=== PATIENT | female | born 1955 | race Caucasian/White ===

== ENCOUNTER 2024-08-02 09:54 | Outpatient (OUT) | payer MEDICARE, SELFPAY ==
--- NOTE | 2024-08-02 10:09 | ECG_ITS ---
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
== END 2024-08-02 09:55 | disposition home or self-care (01) ==
LOC: PST 09:59
PROVIDERS: PCP Family Medicine; Visit Provider Obstetrics & Gynecology
DX: Z01.810 Encounter for preprocedural cardiovascular examination (principal); N95.0 Postmenopausal bleeding; N94.89 Other specified conditions associated with female genital organs and menstrual cycle
CPT/HCPCS: 93005

== ENCOUNTER 2024-08-11 06:05 | Day surgery (SDC) | payer MEDICARE, SELFPAY ==
[2024-08-02 10:42] VITALS: BP 163/111; BP 173/95; PULSE 77; TEMP 36.5; O2SAT 98; BMI 31.4
[2024-08-11] VITALS (10 sets, daily range): BP systolic 127–145; BP diastolic 75–97; PULSE 63–77; TEMP 36.1–36.2; O2SAT 91–96; BMI 30.2
--- OUTSIDE RECORDS SUMMARY | 2024-08-11 06:08 | XMS_ITS | CCD ---
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 Name Role Phone Lizeth Pickett MD Unavailable Lizeth Pickett MD Primary Care Provider [phone] LIZETH PICKETT Referring Unavailable JUDITH EDWARDS Attending Unavailable LIZETH PICKETT Attending Unavailable MEDINA, LIZETH Tricia Referring Unavailable MEDINA, LIZETH Tricia Referring Unavailable BRIANNE AJ Attending Unavailable JUSTYN STEVENSON Attending Unavailab LIZETH Lawton Tricia Referring Unavailable STEVENSONJUSTYN HAMEED Attending Unavailab JUSTYN Dave Referring Unavailab le LIZETH PICKETT Tricia Attending Unavailable LIZETH PICKETT Tricia Referring Unavailable ALEXSANDRA LEDESMA Attending Unavailable BRIANNE AJ Attending Unavailable BRIANNE AJ Attending Unavailable ALEXSANDRA LEDESMA Attending Unavailable LIZETH PICKETT Tricia Attending Unavailable LIZETH PICKETT Tricia Attending Unavailable Allergies Allergy Classification Reported Allergen(s) Allergy Type Date of Onset Reaction(s) Facility (6 sources) Morphine Drug Allergy 2 GI intolerance [facility] Medications Current Medications Medication Drug Class(es) Dates Sig (Normalized) Sig (Original) carvedilol 25 mg oral tablet (3 sources) alpha-Adrenergi c Luanne, beta-Adrenergic Luanne Start: 08-07-2024 End: 08-07-2025 take 1 tablet by mouth in the morning carvedilol (Coreg) 25 MG tablet Indications: Primary hypertension (CMS/HCC) Take 1 tablet (25 mg) by mouth in the morning and 1 tablet (25 mg) in the evening. Take with meals. 60 tablet 1 08/07/2024 08/07/2025 Active cholecalciferol 0.05 mg oral capsule (6 sources) Vitamin D cholecalciferol (Vitamin D-3) 50 MCG (1999) capsule Take by mouth. Active esomeprazole 20 mg delayed release oral capsule (6 sources) Proton Pump Inhibitor take 1 capsule by mouth before mealtime esomeprazole (NexIUM) [address] capsule Take 20 mg by mouth in the morning. Take before meals. Do not open capsule.. Active Fluticasone-Umeclidin -Vilant (Trelegy Ellipta) 200-62.5-25 MCG/ACT aerosol powder (6 sources) Start: 09-15-2023 take 1 puff(s) by inhalation in the morning Fluticasone-Umeclidi n-Vilant (Trelegy Ellipta) 200-62.5-25 MCG/ACT aerosol powder Indications: Other emphysema (CMS/HCC) Inhale 1 puff in the morning. 1 each 09/15/2023 Active Multiple Vitamins-Minerals (CENTRUM SILVER PO) (6 sources) Multiple Vitamins-Minerals (CENTRUM SILVER PO) Take by mouth. Active Problems Active Problems Problem Classification Problem Date Documented Date Episodic/Chronic Chronic obstructive pulmonary disease and bronchiectasis (2 sources) Pulmonary emphysema; Translations: [Other emphysema] 08-07-2024 Chronic Essential hypertension (2 sources) Essential hypertension; Translations: [Essential (primary) hypertension] 08-07-2024 Chronic Menopausal disorders (15 sources) Postmenopausal bleeding; Translations: [Postmenopausal bleeding] Onset: 07-03-2024 07-03-2024 Chronic Other female genital disorders (6 sources) Mass of uterus; Translations: [Other specified noninflammatory disorders of uterus] Onset: 07-03-2024 07-03-2024 Episodic Other female genital disorders (1 source) Lesion of endometrium; Translations: [Other specified conditions associated with female genital organs and menstrual cycle] 07-18-2024 Episodic Other nervous system disorders (6 sources) Other specified mononeuropathies of right lower limb; Translations: [Other mononeuritis of lower limb] Onset: 09-15-2023 09-15-2023 Chronic Past or Other Problems Problem Classification Problem Date Documented Da te Episodic/Chronic Other lower respiratory disease (8 sources) Solitary nodule of lung; Translations: [Solitary pulmonary nodule] Onset: 09-29-2023 09-29-2023 Episodic Results Test Name Value Interpretation Reference Range Facil ity US PELVIC COMPLETE W/ TVon 0 9-10-2024 US PELVIC COMPLETE W/ TV EXAM: Pelvic Ultrasound, Transabdominal and Transvaginal. REASON FOR EXAM: Post menopausal bleeding. TECHNIQUE: Transabdominal and endovaginal scanning was performed, including color Doppler. FINDINGS: Bladder: Smooth, normal margins. No obvious masses or diverticula. Myometrium: Calcified, shadowing fundal fibroid to the right of midline measuring 2.0 x 1.8 x 1.1 cm. Endometrium: Obscured by an isoechoic mass with circumscribed margins measuring 4.0 x 2.6 x 2.6 cm. Cervix: Nabothian cysts are present. Cul-de-sac: No significant free fluid present. Right Ovary: Obscured by overlying bowel gas. Left Ovary: Obscured by overlying bowel gas. Measurements: Uterus: 8.14 x 5.14 x 4.32 cm EM: 2.48 cm Right Ovary: obscured Left Ovary: obscured IMPRESSION, Transabdominal Pelvic Ultrasound: Calcified fundal fibroid of the myometrium. Endometrial mass versus subendometrial fibroid of significant size centrally in the uterus. IMPRESSION, Endovaginal Pelvic Ultrasound: Calcified fundal fibroid of the myometrium. Endometrial mass versus subendometrial fibroid of significant size centrally in the uterus. Ovaries obscured. RECOMMEND: Gynecology consult. *This report is generated using voice recognition reporting (Tasqe). On occasion [employer] erroneously drops words from the report or replaces the spoken word with similar sounding words. Please call with any questions/concerns regarding this report.* Dictated and transcribed 06/27/2024/tm This report has been electronically signed and approved by the interpreting radiologist. Electronically Signed Armani Zhang M.D. 2024-06-27 13:05:13 Normal Not Available US RENAL COMPLETEon 06-14-20 24 US RENAL COMPLETE TITLE OF EXAM: US - US RENAL DOPPLER REASON FOR EXAM: Hematuria TECHNIQUE: Grayscale and color ultrasound evaluation of the abdomen. COMPARISON: None. FINDINGS: Measurements: Right kidney: 11.0 x 4.7 x 4.3 cm Left kidney: 10.9 x 4.3 x 5.7 cm Urinary bladder: 12.9 x 9.4 x 9.1 cm prevoid, 583 mL volume and 4.9 x 4.0 x 4.4 cm post void, volume 538 mL Right Kidney: The parenchymal echogenicity and thickness appear within normal range. No focal lesion is demonstrated. No hydronephrosis. Left Kidney: The parenchymal echogenicity and thickness appear within normal range. No focal lesion is demonstrated. No hydronephrosis. Urinary bladder: No focal or diffuse wall thickening. Bilateral ureteral jets visualized. No appreciable ascites. IMPRESSION: 1. Abnormal urinary bladder post void residual, 538 mL. 2. Otherwise sonographically normal urologic structures. DICTATED ON: 06/15/2024 8:36 AM This report has been electronically signed in approved by the interpreting radiologist. Electronically Signed Kyle Wellington M.D. 2024-06-15 08:37:[address] CHEST WO IV CONTRASTon CT CHEST WO IV CONTRAST EXAM: CT Chest without Contrast: REASON FOR EXAM: Six-month lung nodule followup. COMPARISON: CT chest December 14, 2023. CT chest September 23, 2023. TECHNIQUE: Sagittal, axial and coronal thin cuts of the chest obtained. IV contrast not administered. FINDINGS: The lower neck is without acute abnormality. Scattered subcentimeter middle mediastinal noncalcified lymph nodes. Heart not enlarged. No pericardial thickening. No definite coronary artery calcifications. Images of the upper abdomen are without acute abnormality. Atherosclerosis is present. Osseous structures are without acute abnormality. Regional soft tissues notable for partially calcified right axillary lymph node, not significantly changed. Trabeculated lucency in the lower thoracic vertebral column on the right consistent with an intraosseous hemangioma, unchanged. The airways are patent and symmetric. Fibrolinear changes in the lung bases are stable. A circular 7.1 mm noncalcified pulmonary nodule in the superior segment of the right lower lobe is unchanged. No new abnormalities. There is a 2 to 3 mm calcified granuloma adjacent to the major fissure in the inferior aspect of the right upper lobe. IMPRESSION: 1. Stable right lower lobe noncalcified 7 mm pulmonary nodule. Followup CT chest in six months is recommended to document stability for a year. 2. Previous granulomatous exposure. All CT scans at this institution are performed using dose optimization techniques as appropriate for the performed exam including the following: Automated exposure control Adjustment of the mA and/or kV according to patient size Use of iterative reconstruction technique *This report is generated using voice recognition reporting (Tasqe). On occasion [employer] erroneously drops words from the report or replaces the spoken word with similar sounding words. Please call with any questions/concerns regarding this report.* Dictated and transcribed 06/06/2024/steffen This report has been electronically signed and approved by the interpreting radiologist. Electronically Signed Olvin Lopez II, M.D. 2024-06-06 09:59:[address] CHEST WO IV CONTRASTon CT CHEST WO IV CONTRAST EXAMINATION: CT CHEST WO IV CONTRAST HISTORY: Follow-up lung nodule. TECHNIQUE: Spiral CT acquisition of the chest from the thoracic inlet to the upper abdomen. Dedicated sagittal and coronal reconstructions. Contrast: None. All CT scans at this facility use dose modulation, iterative reconstruction, and/or weight based dosing when appropriate to reduce radiation dose to as low as reasonably achievable. COMPARISON: CT 09/23/2023. RESULT: Lung parenchyma and pleura: Central airways grossly patent. No focal consolidation. No pleural effusion. No pneumothorax. Areas of scarring/atelectasis including linear scarring at the left lung base. 7 x 7 mm solid nodule within the superior segment of the right lower lobe, unchanged from 09/23/2023. Additional 2 mm nodule within the right upper lobe posteriorly, unchanged. Thoracic inlet, heart, and mediastinum: Subcentimeter nodule or cyst right thyroid, not requiring follow-up. No axillary, mediastinal, or hilar lymphadenopathy. Mild thoracic aorta atherosclerotic calcifications without aneurysm. Normal pulmonary size artery. Normal heart size. Scattered coronary artery calcifications. No pericardial effusion or thickening. Esophagus nondilated. Bones: No acute osseous findings. No destructive osseous lesions. Degenerative changes. Underlying decreased bone mineral density. Hemangioma at T12. Small Schmorl's nodes. Soft tissues: Unremarkable. Upper abdomen: No acute abnormality in the imaged upper abdomen. IMPRESSION: 7 mm solid nodule in the superior segment of the right lower lobe, unchanged. Consider follow-up CT in 6 months to ensure stability. ELECTRONICALLY SIGNED BY: Marcus Dominguez MD Normal Not Available BI MAMMOGRAM SCREENING TOMOS YNTHESIS BILATERALon 09-23-2023 BI MAMMOGRAM SCREENING TOMOSYNTHESIS BILATERAL This is a summary report. The complete report is available in the patient's medical record. If you cannot access the medical record, please contact the sending organization for a detailed fax or copy. EXAMINATION: BI MAMMOGRAM SCREENING TOMOSYNTHESIS BILATERAL CLINICAL HISTORY: mammogram COMPARISON: There are no previous mammograms available for comparison. RESULT: Digital mammography and 3D tomosynthesis of bilateral breasts was performed. The breasts are almost entirely fatty. There is no suspicious mass, asymmetry, architectural distortion, or calcification. IMPRESSION: BIRADS 1 - Negative. Follow-up: Routine Screening Mamm . Board Certified Radiologists. Accredited by the ACR and FDA. MAMMOGRAPHY IS VERY IMPORTANT TO YOUR HEALTH. THE [place] [employer] GUIDELINES RECOMMEND THAT WOMEN 40 YEARS OF AGE AND OLDER SHOULD HAVE A MAMMOGRAM EVERY YEAR. A REMINDER LETTER WILL BE SENT AT THE APPROPRIATE TIME. THIS FACILITY UTILIZES A REMINDER SYSTEM TO ENSURE ALL PATIENTS RECEIVE REMINDER NOTIFICATIONS AT THE APPROPRIATE TIME BASED ON THE RECOMMENDATIONS OF THIS EXAM. THIS INCLUDES REMINDERS FOR ROUTINE SCREENING MAMMOGRAMS, DIAGNOSTIC MAMMOGRAMS IN WHICH THE PATIENT IS ASKED TO RETURN FOR ADDITIONAL VIEWS, OR OTHER BREAST IMAGING INTERVENTIONS WHEN APPROPRIATE. THE PATIENT WILL BE PLACED IN THE APPROPRIATE REMINDER SYSTEM INCLUDING A REMINDER AT THE APPROPRIATE TIME FOR ANY PENDING ADDITIONAL VIEWS. TRANSCRIBED BY: ELECTRONICALLY SIGNED BY: Mahendra Shah MD Normal Not Available CT LUNG SCREENING LOW DOSEon 09-23-2023 CT LUNG SCREENING LOW DOSE This is a summary report. The complete report is available in the patient's medical record. If you cannot access the medical record, please contact the sending organization for a detailed fax or copy. LOW DOSE LUNG CANCER SCREENING PROTOCOL CT CHEST WITHOUT IV CONTRAST: HISTORY: NICOTINE DEPENDENCE COMPARISON: TECHNIQUE: Low dose lung cancer screening protocol spiral CT of the chest without IV contrast. Axial, coronal and sagittal reformatted images were reviewed. FINDINGS: The right lung parenchyma shows no focal parenchymal abnormalities. There are small areas of atelectasis/scarring in the right lower lobe. Small calcified granuloma superior lateral aspect of the right upper lobe. There is a noncalcified nodule in the superior aspect of the right lower lobe series 4 image 109 series 2 image 109. It measures approximately 9 mm. No pleural effusions. No pneumothorax. The left lung parenchyma shows small scarring left lower lobe. No other focal parenchymal abnormalities no pleural effusions. No pneumothoraces. The heart and great vessels are intact. No significant periaortic pretracheal, parahilar or subcarinal adenopathy. Within the [id number] of the abdomen visualized abdominal contents are unremarkable. There is multilevel degenerative change visualized thoracic spine IMPRESSION: Impression: 9 MM NONCALCIFIED NODULE SUPERIOR ASPECT RIGHT LOWER LOBE. LUNG-RADS 4A: SUSPICIOUS--3 MONTH LDCT; PET/CT MAY BE USED WHEN THERE IS A GREATER THAN/EQUAL TO 8 MM SOLID COMPONENT. FINDINGS FOR WHICH ADDITIONAL DIAGNOSTIC TESTING AND/OR TISSUE SAMPLING IS RECOMMENDED. All CT scans at this facility use dose modulation, iterative reconstruction, and/or weight based dosing when appropriate to reduce radiation dose to as low as reasonably achievable. ELECTRONICALLY SIGNED BY: Jordin Moe MD Normal Not Available XR KNEE 3 VIEWS RIGHTon 11-2 XR KNEE 3 VIEWS RIGHT EXAM: XR KNEE 3 VIEWS RIGHT HISTORY: knee pain TECHNIQUE: 3 views of the knee obtained. COMPARISON: None available FINDINGS: No acute fracture or dislocation. Joint spaces of the knee are maintained. No knee joint effusion. Soft tissues are within normal limits. IMPRESSION: No acute osseous abnormality. ELECTRONICALLY SIGNED BY: Hamilton Lopez DO Normal Not Available Vital Signs Date Time Vital Sign Value Performing Clinician Faci lity 08-07-2024 09:39-0400 Body height 162.6 cm Lizeth Pickett MD Work Phone: [facility] 08-07-2024 09:39-0400 Body mass index (BMI) [Ratio] 30.62 kg/m2 Lizeth Pickett MD Work Phone: [facility] 08-07-2024 09:39-0400 Body weight 80.92 kg Lizeth Pickett MD Work Phone: [facility] 08-07-2024 09:39-0400 Diastolic blood pressure 94 mm[Hg] Lizeth Pickett MD Work Phone: [facility] 08-07-2024 09:39-0400 Heart rate 80 /min Lizeth Pickett MD Work Phone: [facility] 08-07-2024 09:39-0400 Respiratory rate 18 /min Lizeth Pickett MD Work Phone: [facility] 08-07-2024 09:39-0400 SaO2% (BldA) [Mass fraction] 98 % Lizeth Pickett MD Work Phone: [facility] 08-07-2024 09:39-0400 Systolic blood pressure 142 mm[Hg] Lizeth Pickett MD Work Phone: [facility] 07-18-2024 10:43-0400 Body height 162.6 cm i2O Water DO Work Phone: [facility] [employer] 07-18-2024 10:43-0400 Body mass index (BMI) [Ratio] 30.21 kg/m2 CEED [employer] DO Work Phone: [facility] 07-18-2024 10:43-0400 Body weight 79.83 kg i2O Water DO Work Phone: [facility] 07-18-2024 10:43-0400 Diastolic blood pressure 84 mm[Hg] [employer] Work Phone: [facility] 07-18-2024 10:43-0400 Systolic blood pressure 132 mm[Hg] CEED Techzio DO Work Phone: [facility] Healthcare Encounters Encounter Date Encounter Type Care Provider Facility Start: 08-09-2024 End: 08-09-2024 Bamboo flowsheet Lizeth Pickett MD Work Phone: [facility] Start: 08-09-2024 End: 08-09-2024 Bamboo flowsheet Lizeth Pickett MD Work Phone: [facility] Start: 08-09-2024 End: 08-09-2024 ambulatory LIZETH PICKETT Not Available Start: 08-07-2024 End: 08-07-2024 Bamboo flowsheet Lizeth Pickett MD Work Phone: [facility] Start: 08-07-2024 End: 08-07-2024 Bamboo flowsheet Lizeth Pickett MD Work Phone: [facility] Start: 08-07-2024 End: 08-07-2024 Office outpatient visit 15 minutes Lizeth Pickett MD Work Phone: [facility] Comment on above: Postmenopausal bleed ing (Primary Dx); Solitary lung nodule; Primary hypertension (CMS/HCC); Other emphysema (CMS/HCC) Start: 08-07-2024 End: 08-07-2024 ambulatory LIZETH F MEDINA Not Available Start: 07-18-2024 End: 07-18-2024 Bamboo flowsheet Alexsandra Baltazar DO Work Phone: [facility] Start: 07-18-2024 End: 07-18-2024 Bamboo flowsheet Alexsandra Baltazar DO Work Phone: [facility] Start: 07-18-2024 End: 07-18-2024 Office outpatient visit 15 minutes Alexsandra Baltazar DO Work Phone: [facility] Comment on above: Pre-op examination; Endometrial mass; Postmenopausal bleeding Start: 07-18-2024 End: 07-18-2024 Preprocedural examination done Alexsandra Baltazar DO Work Phone: [facility] Start: 07-18-2024 End: 07-18-2024 ambulatory ALEXSANDRA BALTAZAR Not Available Start: 07-05-2024 End: 07-05-2024 ambulatory BRIANNE AJ Not Available Start: 07-03-2024 End: 07-03-2024 ambulatory ALEXSANDRA BALTAZAR Not Available Start: 06-27-2024 End: 06-27-2024 ambulatory LIZETH F MEDINA Not Available Start: 06-22-2024 End: 06-22-2024 ambulatory LIZETH F MEDINA Not Available Start: 06-14-2024 End: 06-14-2024 ambulatory JUSTYN A STEVENSON Not Available Start: 06-12-2024 End: 06-12-2024 ambulatory JUSTYN A STEVENSON Not Available Start: 06-05-2024 End: 06-05-2024 ambulatory LIZETH F MEDINA Not Available Start: 05-27-2024 End: 05-27-2024 ambulatory JUSTYN A STEVENSON Not Available Start: 12-22-2023 End: 12-22-2023 ambulatory BRIANNE AJ Not Available Start: 12-20-2023 End: 12-20-2023 ambulatory JUDITH EDWARDS Not Available Start: 12-14-2023 End: 12-14-2023 ambulatory LIZETH F MEDINA Not Available Start: 09-29-2023 End: 09-29-2023 ambulatory BRIANNE AJ Not Available Start: 09-23-2023 End: 09-23-2023 ambulatory LIZETH PICKETT Not Available Start: 09-15-2023 End: 09-15-2023 ambulatory LIZETH PICKETT Not Available Procedures Date Procedure Procedure Detail Performing Clinician Start: 09-23-2023 Mammography Alexsandra steele DO Work Phone: Plan of Treatment Date Care Activity Detail Author Start: 04-16-2025 Influenza vaccination Influenza Vacc ine (#1) [facility] Comment on above: Postponed from 06/18 (Patient Refused) Start: 12-20-2024 End: 12-20-2024 Patient encounter procedure 12/20/2024 9:45 AM EST Office Visit [facility] [address] [place] [address] Brianne Aj, [address] [place] [address] [facility] Start: 09-23-2024 Screening for malign ant neoplasm of breast Mammogram [facility] Start: 09-15-2024 Medicare Annual Well ness (AWV) Medicare Annual Wellness (AWV) [facility] Start: 08-11-2024 End: 08-11-2024 Patient encounter procedure 08/11/2024 9:30 AM EDT Procedure Visit [facility] Alexsandra Ledesma, DO [address] [facility] [place] [address] [facility] Start: 08-09-2024 End: 08-09-2024 Patient encounter procedure [facility] Comment on above: Arrived Start: 08-07-2024 End: 08-07-2024 Patient encounter procedure 08/07/2024 9:40 AM EDT Office Visit [facility] [address] [place] [address] Lizeth Pickett MD [address] [place], [place] [id number] Arrived [facility] Comment on above: Arrived Start: 07-18-2024 End: 07-18-2024 Patient encounter procedure 07/18/2024 10:10 AM EDT Consult [facility] [address] [place] [address] Alexsandra Ledesma, DO [address] [place] [address] Arrived [facility] Comment on above: Arrived Start: 06-18-2024 Influenza vaccination Influenza Vacc ine (#1) [facility] Start: 1955 Screening for malign ant neoplasm of colon [facility] Immunizations Immunization Date Immunization Notes Care Provider Fa cilistephane 09-15-2023 Pneumococcal Conjuga te PCV 20 Alexsandra Ledesma DO Work Phone: [facility] Payers Date Payer Category Payer Medicare [employer] MEDIC[employer] ADVANTAGE [facility]LY [facility] MEDICARE ADVANTAGE [id number] 2023-Present [address] [id number] 2023 Medicare (Managed Care) [facility] ADVANTAGE Member Subscriber Plan / Payer (Effective 2023-Present) Name: Miller Maira Relation to Subscriber: Self Name: Maira Miller Payer ID: Not on file Group ID: Not on file Type: Not on file Address: [address] [id number] 2023 Medicare [id number] 1955 Unknown [id number] [id number] .2.1259 1953 Unknown [id number] 2.16.840.1.330425.3.579 .2.1259 1953 Unknown [id number] 2.16.840.1.857126.3.579 .2.1259 1953 Unknown [id number] 2.16.840.1.465748.3.579 .2.1259 1953 Unknown [id number] 2.16.840.1.881297.3.579 .2.1259 1953 Unknown [id number] 2.16.840.1.778091.3.579 .2.1259 1953 Unknown [id number] 2.16.840.1.184394.3.579 .2.1259 1953 Unknown [id number] 2.16.840.1.043798.3.579 .2.1258 1953 Unknown [id number] 2.16.840.1.699774.3.579 .2.125 1953 Unknown [id number] 2.16.840.1.176705.3.579 .2.125 1953 Unknown [id number] 2.16.840.1.991803.3.579 .2.125 1953 Unknown [id number] 2.16.840.1.736792.3.579 .2.1259 1953 Unknown [id number] 2.16.840.1.300933.3.579 .2.1259 1953 Unknown [id number] 2.16.840.1.845837.3.579 .2.125 1953 Unknown [id number] 2.16.840.1.599807.3.579 .2.1259 1953 Unknown [id number] 2.16.840.1.283258.3.579 .2.1259 1953 Unknown [id number] 2.16.840.1.618013.3.579 .2.1259 1953 Unknown [id number] 2.16.840.1.738634.3.579 .2.1259 1953 Unknown [id number] 2.16.840.1.842649.3.579 .2.1259 Social History Date Type Detail Facility Start: 05-27-2024 Tobacco smoking status NHIS Ex-smoke r [facility] Start: 03-01-1978 End: 03-01-2018 History of tobacco use Current smoker [facility] Start: 03-01-1978 End: 03-01-2018 History of tobacco use Cigarette Smoker [facility] Start: 09-14-2023 End: 05-27-2024 Cigarettes smoked current (pack per day) - Reported 1 [facility] Start: 05-27-2024 Tobacco use and exposure Smoke less tobacco non-user [facility] Start: 07-03-2024 End: 08-07-2024 Alcoholic beverage intake Current drinker of alcohol (finding) [facility] Start: 09-14-2023 End: 09-15-2023 Humiliation, Afraid, Rape, and Kick questionnaire [HARK] [facility] Within the last year , have you been afraid of your partner or ex-partner? No [facility] Are you now , , , , never or living with a partner? [facility] How often to you hav e a drink containing alcohol? 2-3 time sa week [facility] How many standard dr inks containing alcohol do you have on a typical day? 1 or 2 [facility] How often do you hav e 6 or more drinks on 1 occasion? Less than monthly [facility] How hard is it for y ou to pay for the very basics like food, housing, medical care, and heating Not very hard [facility] Do you feel stress - tense, restless, nervous, or anxious, or unable to sleep at night because your mind is troubled all the time - these days [OSQ] Only a little [facility] (I/We) worried wheth er (my/our) food would run out before (I/we) got money to buy more. Never true [facility] In the past 12 month s, has lack of transportation kept you from medical appointments or from getting medications? No [facility] Start: 06-22-2024 Alcohol Comment Caffine: 0 [facility] Start: 1955 Sex assigned at Female [facility] Start: 09-01-2023 Gender identity Identifies as female gender (finding) [facility] Start: 09-01-2023 Sexual orientation Heterosexual (alex mariano) [facility] History of Present illness Narrative 08-07-2024 Lizeth Pickett MD - 08/07/2024 9:40 AM EDT Note Date & Type Note Facility 08-07-2024 History of Presen t illness Narrative Maira Miller is a 68 y.o. female presents with chief complaint of Hypertension (Patient presents today for high blood pressures. Patient is scheduled to have D&C hysteroscopy surgery on 08/11/[address] Ledesma. ) HPI: HPI History of Present Illness SUBJECTIVE: MEDICATIONS: Current Outpatient Medications Medication Instructions cholecalciferol (Vitamin D-3) 50 MCG (1999 UT) capsule Take by mouth. esomeprazole (NEXIUM) 20 mg, Daily before breakfast Fceslchgdaz-Yjkwzvwsy-Fkxpps (Trelegy Ellipta) 200-62.5-25 MCG/ACT aerosol powder 1 puff, Inhalation, Daily Multiple Vitamins-Minerals (CENTRUM SILVER PO) Take by mouth. ALLERGIES: Allergies Allergen Reactions Morphine GI intolerance Vomiting SURGICAL HISTORY: Past Surgical History: Procedure Laterality Date ROTATOR CUFF REPAIR 2004 SHOULDER SURGERY TUBAL LIGATION FAMILY HISTORY: Family History Problem Relation Name Age of Onset Breast cancer Mother Fatmata Greenberg Rheum arthritis Mother Fatmata Greenberg Tuberculosis Father SOCIAL HISTORY: Social History Tobacco Use Smoking status: Former Current packs/day: 0.00 Average packs/day: 1 pack/day for 40.0 years (40.0 ttl pk-yrs) Types: Cigarettes Start date: 03/01/1978 Quit date: 03/01/2018 Years since quittin.4 Smokeless tobacco: Never Substance Use Topics Alcohol use: Yes Alcohol/week: 2.0 - 7.0 standard drinks of alcohol Types: 2 - 7 Standard drinks or equivalent per week Comment: Caffine: 0 Drug use: Never Depression: Not at risk (09/15/2023) PHQ-2 PHQ-2 Score: 0 REVIEW OF SYMPTOMS: Review of Systems Respiratory: Negative. Cardiovascular: Negative. OBJECTIVE: Visit Vitals BP (!) 142/94 (BP Location: Left arm, Patient Position: Sitting, BP Cuff Size: Large adult) Pulse 80 Resp 18 Ht 5' 4 Wt 178 lb 6.4 oz SpO2 98% BMI 30.62 kg/m Smoking Status Former BSA 1.91 m Physical Exam Constitutional: Appearance: Normal appearance. She is normal weight. HENT: Head: Normocephalic and atraumatic. Nose: Nose normal. Mouth/Throat: Mouth: Mucous membranes are moist. Eyes: Pupils: Pupils are equal, round, and reactive to light. Cardiovascular: Rate and Rhythm: Normal rate and regular rhythm. Heart sounds: No murmur heard. Pulmonary: Effort: Pulmonary effort is normal. Breath sounds: Normal breath sounds. No wheezing or rhonchi. Musculoskeletal: General: No swelling. Cervical back: Normal range of motion and neck supple. Right lower leg: No edema. Left lower leg: No edema. Skin: General: Skin is warm and dry. Findings: No rash. Neurological: Mental Status: She is alert and oriented to person, place, and time. Sensory: No sensory deficit. Gait: Gait normal. Psychiatric: Mood and Affect: Mood normal. Thought Content: Thought content normal. Judgment: Judgment normal. ASSESSMENT AND PLAN: Assessment/Plan Problem List Items Addressed This Visit Solitary lung nodule Postmenopausal bleeding - Primary Other Visit Diagnoses Primary hypertension (CMS/HCC) Relevant Medications carvedilol (Coreg) 25 MG tablet Other emphysema (CMS/HCC) Elevated bp start coreg. Recheck bp in 2 days t clear for surgery documented in this encounter [facility] History of Present illness Narrative 07-18-2024 Nakia Weller - 07/18/2024 10:10 AM EDT Note Date & Type Note Facility 07-18-2024 History of Presen t illness Narrative Reason for Appointment: Patient ID: Maira Miller is a 68 y.o. female who presents for Pre-op Visit Patient presents today for Pre Op appointment. Patient is scheduled to undergo D&C Hysteroscopy, possible Myosure on 08/11/[address] Ledesma at [facility]. MEDICATIONS Current Outpatient Medications Medication Instructions cholecalciferol (Vitamin D-3) 50 MCG (1999 UT) capsule Oral esomeprazole (NEXIUM) 20 mg, Oral, Daily before breakfast, Do not open capsule. 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 Solitary lung nodule 09/29/2023 Postmenopausal bleeding 07/03/2024 Uterine mass 07/03/2024 Hot flashes due to menopause 07/03/2024 Resolved Ambulatory Problems Diagnosis Date Noted No Resolved Ambulatory Problems Past Medical History: Diagnosis Date Arthritis COPD (chronic obstructive pulmonary disease) ([facility]) H/O shoulder surgery 2000 HISTORY PAST MEDICAL HISTORY SOCIAL HISTORY Past Medical History: Diagnosis Date Arthritis COPD (chronic obstructive pulmonary disease) ([facility]) H/O shoulder surgery 2000 Social History Tobacco Use Smoking status: Former Current packs/day: 0.00 Average packs/day: 1 pack/day for 40.0 years (40.0 ttl pk-yrs) Types: Cigarettes Start date: 03/01/1978 Quit date: 03/01/2018 Years since quittin.3 Smokeless tobacco: Never Substance Use Topics Alcohol use: Yes Alcohol/week: 2.0 - 7.0 standard drinks of alcohol Types: 2 - 7 Standard drinks or equivalent per week Comment: Caffine: 0 Drug use: Never FAMILY HISTORY Family History Problem Relation Name Age of Onset Breast cancer Mother Tuberculosis Father SURGICAL HISTORY Past Surgical History: Procedure Laterality Date ROTATOR CUFF REPAIR 2005 SHOULDER SURGERY TUBAL LIGATION REVIEW OF SYSTEMS Review of Systems: Review of Systems Constitutional: Negative. HENT: Negative. Eyes: Negative. Respiratory: Negative. Cardiovascular: Negative. Gastrointestinal: Negative. Genitourinary: Positive for vaginal bleeding. Musculoskeletal: Negative. Skin: Negative. Neurological: Negative. All other systems reviewed and are negative. Hematological: Negative. Endocrine: Negative. Allergic/Immunologic: Negative. OBJECTIVE Objective: Physical Exam Constitutional: Appearance: Normal appearance. She is well-developed. Cardiovascular: Rate and Rhythm: Normal rate and regular rhythm. Pulmonary: Effort: Pulmonary effort is normal. Breath sounds: Normal breath sounds. Abdominal: General: Bowel sounds are normal. There is no distension. Palpations: Abdomen is soft. Tenderness: There is no abdominal tenderness. There is no guarding or rebound. Musculoskeletal: General: No swelling. Normal range of motion. Right lower leg: No edema. Left lower leg: No edema. Neurological: Mental Status: She is alert and oriented to person, place, and time. Skin: General: Skin is warm and dry. Psychiatric: Mood and Affect: Mood normal. Behavior: Behavior normal. Vitals and nursing note reviewed. Exam conducted with a shrimp packer present. Vitals: Estimated body mass index is 30.48 kg/m as calculated from the following: Height as of 07/05/24: 5' 4 . Weight as of 07/05/24: 177 lb 9.6 oz. BP: No LMP recorded. ASSESSMENT & PLAN ICD-10-CM 1. Pre-op examination Z01.818 2. Endometrial mass N94.89 3. Postmenopausal bleeding N95.0 Pre Op: Patient is doing well but has complaints of postmenopausal bleeding. I have discussed conservative management vs. surgical management with the patient in detail and patient desires surgical management at this time. Patient will undergo D&C Hysteroscopy, possible Myosure on 08/11/2024. Surgical consents were signed, mmc was reviewed, and patient is to proceed to [facility] OR. Follow Up: Patient is to follow up between 1-2 weeks post operative to assess proper healing and recovery from procedure. Documented by Aleah Reveles LPN on behalf of: Alexsandra Ledesma DO documented in this encounter [facility] Evaluation note Note Date & Type Note Facility Evaluation note Diagnosis Pre-op examination Endometrial mass Postmenopausal bleeding documented in this encounter [facility] Evaluation note Note Date & Type Note Facility Evaluation note Diagnosis Postmenopausal bleeding- Primary Solitary lung nodule Other diseases of lung, not elsewhere classified Primary hypertension (CMS/HCC) Unspecified essential hypertension Other emphysema (CMS/HCC) Other emphysema documented in this encounter [facility] Summary Purpose Family History No Family History Records Found Advance Directives No Advanced Directives Records Found Additional Source Comments Care Teams (unrecognized sec tion and content) Drilling Contractor Relationship Specialty Start Date End Date Lizeth Pickett MD [address] [place] [address] PCP - Suzan FLOREZ 08/18/22 Lizeth Pickett MD [address] [place] [address] PCP - General Family Medicine 02/23/23 Drilling Contractor Relationship Specialty Start Date End Date Lizeth Pickett MD [address] [place] [address] PCP - Suzan FLOREZ 08/18/22 Lizeth Pickett MD [address] [place] [address] PCP - General Family Medicine 02/23/23 Drilling Contractor Relationship Specialty Start Date End Date Lizeth Pickett MD [address] [place] [address] PCP - Suzan FLOREZ 08/18/22 Lizeth Pickett MD [address] [place] [address] PCP - General Family Medicine 02/23/23 Drilling Contractor Relationship Specialty Start Date End Date Lizeth Pickett MD [address] [place] [address] PCP - Suzan FLOREZ 08/18/22 Lizeth Pickett MD [address] [place] [address] PCP - General Family Medicine 02/23/23 Drilling Contractor Relationship Specialty Start Date End Date Lizeth Pickett MD [address] [place] [address] PCP - Suzan FLOREZ 08/18/22 Lizeth Pickett MD [address] [place] [address] PCP - General Family Medicine 02/23/23 Reason for Visit (unrecogniz ed section and content) Reason Comments Pre-op Visit Reason Comments Hypertension Patient presents tod ay for high blood pressures. Patient is scheduled to have D&C hysteroscopy surgery on 08/11/[address] Ledesma. INFORMATION SOURCE (unrecogn ized section and content) DATE CREATED AUTHOR 08/10/2024 [facility] FOR RECORDS PERTAINING TO PATIENTS WHO ARE OR HAVE BEEN ENROLLED IN A CHEMICAL DEPENDENCY/SUBSTANCEABUSE PROGRAM, SOME INFORMATION MAY BE OMITTED. This clinical summary was aggregated from multiple sources. Caution should be exercised in using it in the provision of clinical care. This summary normalizes information from multiple sources, and as a consequence, information in this document may materially change the coding, format and clinical context of patient data. In addition, data may be omitted in some cases. CLINICAL DECISIONS SHOULD BE BASED ON THE PRIMARY CLINICAL RECORDS. [email or web address] provides no warranty or guarantee of the accuracy or completeness of information in this document.
[2024-08-11 06:23] LABS: Basophils Absolute Auto 0.1 10^3/uL (0.0-0.1); Basophils Percent Auto 0.6 % (0.2-2.0); Eosinophils Absolute Auto 0.1 10^3/uL (0.0-0.7); Eosinophils Percent Auto 1.1 % (0.9-7.0); Hematocrit 36.1 % (36.0-48.0); Hemoglobin 11.3 g/dL (12.0-16.0); Immature Granulocytes Abs Auto 0.02 10^3/uL (0.00-0.03); Immature Granulocytes Pct Auto 0.2 % (0.0-0.5); Lymphocytes Absolute Auto 2.9 10^3/uL (1.2-3.8); Lymphocytes Percent Auto 34.4 % (20.5-60.0); Mean Corpuscular HGB Conc 31.3 g/dL (29.9-35.2); Mean Corpuscular Hemoglobin 27.4 pg (26.7-34.0); Mean Corpuscular Volume 87.6 fL (81.0-99.0); Monocytes Absolute Auto 0.7 10^3/uL (0.3-0.8); Monocytes Percent Auto 8.6 % (1.7-12.0); Neutrophils Absolute Auto 4.7 10^3/uL (1.4-6.5); Neutrophils Percent Auto 55.1 % (43.0-75.0); Platelet Count 306 10^3/uL (150-450); Red Blood Count 4.12 10^6/uL (4.20-5.40); Red Cell Distribution Width 15.1 % (11.0-15.0); White Blood Count 8.5 10^3/uL (4.0-11.0)
[2024-08-11] MEDS: LACTATED RINGER'S SOLUTION 1,000 ML 50 ML IV (06:50)
--- NOTE | 2024-08-11 08:14 | PM.ONB ---
Brief Operative Note Date of procedure: 08/11/24 Pre-op diagnosis general: pmb, thickened endometrium Post-op diagnosis: other (uterine polyp) Procedure: NAME OF PROCEDURE: [ D&c hysteroscopy with myosure] PROCEDURE: The patient was taken back to the Operating Room where she was prepped and draped in normal sterile fashion after being placed under general anesthesia without difficulty. She was also placed in the dorsal lithotomy position. A weighted speculum was placed in the patient?s vagina. The anterior lip of the cervix was identified and grasped with a single tooth tenaculum. The patient?s uterus was then sounded roughly to [? 8] cm. The patient was then gently dilated using Hegar dilators. The hysteroscope was passed through the patient?s cervix into the uterus. Both ostia were identified. fluffy appearing endometrium. No gross evidence of malignancy, no gross evidence of polyps or fibroids. The myosure apparatus was placed through the scope, The myosure was engaged and endometrial curretting were removed along with endometrial polyp, The hysteroscope was then removed from the uterus. The endometrial curettings were sent out to pathology. The single tooth tenaculum was then removed from the patient's anterior lip of the cervix where excellent hemostasis was noted. All instruments were removed from the patient?s vagina. The patient tolerated the procedure well. Sponge, lap and needle counts were correct times two. The patient was taken to the Recovery Room in stable condition.Room in stable condition. Anesthesia: MAC Surgeon: Odilon Ledesma Estimated blood loss (mL): 10 Pathology: other (endometrial curretting, endometrial polyp) Condition: stable Disposition: PACU Urinary Catheter Management Urinary Catheter Management Urethral: Cath placed during this visit: no
[2024-08-11] MEDS: LACTATED RINGER'S SOLUTION 1,000 ML 150 ML IV (08:41)
== END 2024-08-11 09:35 | disposition home or self-care (01) ==
PROVIDERS: PCP Family Medicine; Visit Provider Obstetrics & Gynecology
PROC: (CPT 58558; principal; 2024-08-11 07:30)
DX: N95.0 Postmenopausal bleeding (principal); N94.89 Other specified conditions associated with female genital organs and menstrual cycle; N84.0 Polyp of corpus uteri; Z87.891 Personal history of nicotine dependence; J44.9 Chronic obstructive pulmonary disease, unspecified; E78.5 Hyperlipidemia, unspecified; I10 Essential (primary) hypertension; K21.9 Gastro-esophageal reflux disease without esophagitis
CPT/HCPCS: 58558; 36415; 85025; 88305; J1100; J1885; J2405; J2704; J3010